=== PATIENT | male | born 1985 | race Caucasian/White ===

== ENCOUNTER 2021-03-23 10:03 | Emergency (ER) | payer OTHER, SELFPAY ==
[2021-03-23 10:17] VITALS: BP 115/66; PULSE 68; RESP 12; TEMP 36.8; O2SAT 100
--- NOTE | 2021-03-23 11:00 | ED.GENADULT ---
HPI - General Adult General Chief complaint: Neck Pain/Injury Stated complaint: Lt Shoulder Time Seen by Provider: 03/23/21 10:52 Source: patient and RN notes reviewed Mode of arrival: ambulatory Limitations: no limitations History of Present Illness HPI narrative: Patient presents today complaining of left pectoral, trapezius, and latissimus pain after [employer] practice 2 days ago. States he is having spasms in these muscles and pain is worse when he lets his arm hang to the side. Pain occasionally radiates to the upper arm. Currently rates pain 6/10. He is having difficulty getting into good sleeping position for him to rest. States pain is constant. He has tried ice and heat as well as stretching, all without relief. MD complaint: Left shoulder pain Related Data Allergies Allergy/AdvReac Type Severity Reaction Status Date / Time cefaclor [From [facility]] Allergy Rash Verified 03/23/21 10:24 Review of Systems Review of Systems: CONSTITUTIONAL: Denies body aches, fever, chills, or sweats. EYES: Denies visual changes, redness, or discharge. ENT: Denies rhinorrhea, congestion, sore throat, or otalgia. CARDIOVASCULAR: Denies chest pain, palpitations, or edema. RESPIRATORY: Denies cough or dyspnea. GASTROINTESTINAL: Denies abdominal pain, nausea, vomiting, or diarrhea. GENITOURINARY: Denies dysuria or hematuria. SKIN: Denies rash, itching, or wounds. MUSCULOSKELETAL: Denies back pain. + Left shoulder pain NEUROLOGIC: Denies headache, numbness, tingling, or weakness. PSYCH: Denies depression or anxiety. PMFSH Comments At time of signature, I have reviewed and agree with nursing past medical, surgical, social and family history unless otherwise noted. Please see nursing chart for further information. There is no relevant family history pertinent to the presenting complaint Exam Narrative: GENERAL: Well-appearing, well-nourished, and in no acute distress. HEAD: Normocephalic, atraumatic. EYES: EOMI. No redness or drainage. Conjunctivae normal. ENT: Mucous membranes pink and moist. NECK: Normal AROM. Supple. No lymphadenopathy. No tenderness to the neck. CHEST: No respiratory distress. MUSCULOSKELETAL: No bony tenderness to the spine. EXTREMITIES: Normal range of motion of the left shoulder. No edema. Tenderness to the left trapezius, left upper chest area, and the left lateral chest/axilla.. Patient has full range of motion of the shoulder. Distal sensation intact. Capillary refill normal. Radial pulse normal. SKIN: Warm, dry, no rash. Capillary refill normal. Normal skin turgor. NEURO: No focal deficits. Alert and oriented x3. Gait steady. PSYCH: Normal affect. No signs of depression or anxiety. Course Vital Signs Vital signs: Vital Signs Temperature 98.2 F 03/23/21 10:17 Pulse Rate 68 03/23/21 10:17 Respiratory Rate 12 03/23/21 10:17 Blood Pressure 115/66 03/23/21 10:17 Pulse Oximetry 100 03/23/21 10:17 Temperature 98.2 F 03/23/21 10:17 Pulse Rate 68 03/23/21 10:17 Respiratory Rate 12 03/23/21 10:17 Blood Pressure 115/66 03/23/21 10:17 Pulse Oximetry 100 03/23/21 10:17 Reviewed Medical Decision Making Differential Diagnosis Differential Diagnosis: Muscle strain, muscle spasm, shoulder strain, rotator cuff tendinitis Vital Signs Vital Signs: Vital Signs Temperature 98.2 F 03/23/21 10:17 Pulse Rate 68 03/23/21 10:17 Respiratory Rate 12 03/23/21 10:17 Blood Pressure 115/66 03/23/21 10:17 Pulse Oximetry 100 03/23/21 10:17 Temperature 98.2 F 03/23/21 10:17 Pulse Rate 68 03/23/21 10:17 Respiratory Rate 12 03/23/21 10:17 Blood Pressure 115/66 03/23/21 10:17 Pulse Oximetry 100 03/23/21 10:17 Critical Care Time Critical Care Time Critical Care Time: No Discharge Plan Discharge Clinical Impression: Muscle strain Patient Disposition: Home, Self-Care Condition: Stable Instructions: Muscle Strain (DC) Addition
--- NOTE | 2021-03-23 11:46 | PC.NURSE ---
Thea called into [facility] in [place] because [facility] is closed today.
== END 2021-03-23 11:25 | disposition home or self-care (01) ==
PROVIDERS: Emergency Provider Nurse Practitioner
DX: S16.1XXA Strain of muscle, fascia and tendon at neck level, initial encounter (principal); X58.XXXA Exposure to other specified factors, initial encounter; Y93.75 Activity, martial arts
CPT/HCPCS: 99203; G0463

== ENCOUNTER 2022-05-23 10:20 | Emergency (ER) | payer OTHER, SELFPAY ==
--- NOTE | ~2022-05-23 | XR_ITS ---
XR finger 3rd RT min 2V DATE: 05/23/2022 10:48 INDICATION: Injury to proximal phalanx 2 months ago, 3 injury 2 days ago TECHNIQUE: 4 views of third digit COMPARISON: None FINDINGS: No fracture or dislocation, periosteal reaction or bone destruction, joint space narrowing, erosive change, chondrocalcinosis, subcutaneous emphysema or radiopaque foreign body IMPRESSION: No significant abnormality Reviewed, dictated and finalized at location A. [facility] COORDINATOR IMPRESSION: No significant abnormality
[2022-05-23 10:37] VITALS: BP 112/64; PULSE 72; RESP 16; TEMP 36.5; O2SAT 100
[2022-05-23 10:38] VITALS: BP 112/64; PULSE 72; RESP 16; TEMP 36.5; O2SAT 100
--- NOTE | 2022-05-23 11:05 | ED.UPPEXIN ---
HPI - Extremity Injury (Upper) General Chief Complaint: Extremity Injury, Upper Stated Complaint: Finger Pain Rt Hand Time Seen by Provider: 05/23/22 10:47 Source: patient Mode of arrival: ambulatory Limitations: no limitations History of Present Illness HPI narrative: Patient presents today complaining of an injury to his right 3rd finger. He initially injured it 2 months ago doing jujitsu, but symptoms had improved combo for injuring and again a few days ago. States he has increased pain when making a fist. He is pain-free at rest. He is applying ice and heat and stretching the finger. He has tried no medication for symptoms prior to arrival. Denies any numbness or tingling. Related Data Home Medications Medication Instructions Recorded Confirmed No Home Medications 05/23/22 05/23/22 Allergies Allergy/AdvReac Type Severity Reaction Status Date / Time cefaclor [From [facility]] AdvReac Mild Rash Verified 05/23/22 11:06 Review of Systems Review of Systems: CONSTITUTIONAL: Denies body aches, fever, chills, or sweats. EYES: Denies visual changes, redness, or discharge. ENT: Denies rhinorrhea, congestion, sore throat, or otalgia. CARDIOVASCULAR: Denies chest pain, palpitations, or edema. RESPIRATORY: Denies cough or dyspnea. GASTROINTESTINAL: Denies abdominal pain, nausea, vomiting, or diarrhea. GENITOURINARY: Denies dysuria or hematuria. SKIN: Denies rash, itching, or wounds. MUSCULOSKELETAL: Denies back pain, or myalgia. + finger injury NEUROLOGIC: Denies headache, numbness, tingling, or weakness. PSYCH: Denies depression or anxiety. PMFSH Comments At time of signature, I have reviewed and agree with nursing past medical, surgical, social and family history unless otherwise noted. Please see nursing chart for further information. There is no relevant family history pertinent to the presenting complaint Exam Narrative: GENERAL: Well-appearing, well-nourished, and in no acute distress. HEAD: Normocephalic, atraumatic. EYES: EOMI. No redness or drainage. ENT: Mucous membranes pink and moist. NECK: Normal AROM. CHEST: No respiratory distress. EXTREMITIES: Right 3rd finger: Tenderness to the MCP and PIP. No edema, ecchymosis, or erythema noted. Pain with full flexion. Distal sensation intact. Capillary refill normal. SKIN: Warm, dry, no rash. Capillary refill normal. Normal skin turgor. NEURO: No focal deficits. Alert and oriented x3. Gait steady. PSYCH: Normal affect. No signs of depression or anxiety. Course Course Level of Care: Express Care Visit Vital Signs Vital signs: Vital Signs Temperature 97.7 F 05/23/22 10:37 Pulse Rate 72 05/23/22 10:37 Respiratory Rate 16 05/23/22 10:37 Blood Pressure 112/64 05/23/22 10:37 Pulse Oximetry 100 05/23/22 10:37 Oxygen Delivery Room Air 05/23/22 10:37 Temperature 97.7 F 05/23/22 11:07 Pulse Rate 72 05/23/22 11:07 Respiratory Rate 16 05/23/22 11:07 Blood Pressure 112/64 05/23/22 10:38 Pulse Oximetry 100 05/23/22 11:07 Oxygen Delivery Room Air 05/23/22 10:38 Reviewed MDM - Extremity Injury (Upper) Differential Diagnosis Differential diagnosis: Likely finger sprain and other (Finger fracture) Imaging Data Radiologist's impression: ITS Impressions Finger X-Ray 05/23/22 11:08 IMPRESSION: No significant abnormality Critical Care Time Critical Care Time Critical Care Time: No Discharge Plan Discharge Clinical Impression: Finger sprain Qualifiers: Encounter type: initial encounter Finger: middle finger Sprain of finger site: unspecified site Laterality: right Qualified Code(s): S63.612A - Unspecified sprain of right middle finger, initial encounter Patient Disposition: Home, Self-Care Condition: Stable Instructions: Finger Sprain (ED) Additional Instructions: Your x-rays negative for fracture today. Ice your finger. Taking anti-inflammatories such as Aleve or ibupr
[2022-05-23 11:07] VITALS: PULSE 72; RESP 16; TEMP 36.5; O2SAT 100
== END 2022-05-23 11:20 | disposition home or self-care (01) ==
PROVIDERS: Emergency Provider Nurse Practitioner
DX: S63.612A Unspecified sprain of right middle finger, initial encounter (principal); X58.XXXA Exposure to other specified factors, initial encounter
CPT/HCPCS: 73140; 99213; G0463

== ENCOUNTER 2022-05-27 09:54 | Emergency (ER) | payer OTHER, SELFPAY ==
[2022-05-27 09:58] VITALS: BP 113/75; PULSE 68; RESP 16; TEMP 36.5; O2SAT 98
--- NOTE | 2022-05-27 10:05 | ED.WOUNDLAC ---
HPI - Wound/Laceration General Chief Complaint: Wound/Laceration Stated Complaint: Cut on right thumb Time Seen by Provider: 05/27/22 10:05 Source: patient Mode of arrival: ambulatory Limitations: no limitations History of Present Illness HPI narrative: has a superficial laceration of the palm surface of his distal thumb that occurred about 20minutes a couple minutes ago while at work has good range of motion with no numbness or tingling, is not up-to-date with his tetanus and will update patient with his tetanus vaccine. Onset (ago): minute(s) Location: other Extremity Location: Right: hand ( Palmar surface of his right thumb) Place: work Patient tetanus UTD: No Context: accidental Related Data Home Medications Medication Instructions Recorded Confirmed No Home Medications 05/23/22 05/27/22 Allergies Allergy/AdvReac Type Severity Reaction Status Date / Time cefaclor [From Ceclor] AdvReac Mild Rash Verified 05/23/22 11:06 Review of Systems Review of Systems: All systems reviewed & are unremarkable except as noted in HPI and below PMFSH Past Medical History Medical History Patient denies medical problems Exam Const: General: healthy appearing Nutritional Appearance: well nourished Orientation/consciousness: patient oriented x3 Limitations: no limitations HENMT: Head: normal to inspection Face and sinus: normal facial exam Mouth: Yes Normal oral and palatal mucosa present Eyes: Pupils: Equal, round and reactive pupils present EOM: EOMs intact bilaterally Neck: Neck: normal visual inspection Chest: Chest palpation & inspection: normal inspection of the chest Resp: Effort & Inspection: normal respiratory effort Auscultation: clear to auscultation bilaterally Cardio: Rate: regular rate GI: GI Palp: Yes Soft to palpation Auscultation: normal bowel sounds Skin: Other: superficial laceration palmar surface of his dimmed distal right thumb non gaping approximately 2cm Neuro: General: patient oriented x3 Cranial nerves: Yes Nystagmus not present Extrem: General: normal to inspection Psych: Mental Status: mental status grossly normal Affect: normal affect Course Course Emergency Course: patient tolerated procedure well had Dermabond applied to his laceration of his right thumb and updated patient with his tetanus vaccine Procedures Laceration Laceration 1: Date: 05/27/22 Time: 10:09 Site: hand ( right thumb) Side (If applicable): right Size (cm): 2 Description: linear Depth: simple, single layer Pre-repair: irrigated extensively ====== Skin Level ====== Skin layer closed with: dermabond ====== Subcutaneous Layer ====== ====== Muscle Layer ====== ====== Tendon Layer ====== Critical Care Time Critical Care Time Critical Care Time: No Discharge Plan Discharge Clinical Impression: Laceration Patient Disposition: Home, Self-Care Condition: Stable Instructions: Antibiotic Form, Laceration (ED), Skin Adhesive Care (ED) Additional Instructions: advised follow-up with primary care physician if symptoms persist or worsen. Prescriptions: No Action No Home Medications Follow-up/Referrals: UNKNOWN,DOCTOR [Primary Care Provider] - Time of Disposition: 10:10
[2022-05-27] MEDS: TETANUS,DIPHTHERIA,AC PERTUSSIS ADULT 0.5 ML (ADACEL) IM (10:10)
[2022-05-27 10:22] VITALS: BP 133/77; PULSE 104; RESP 20; TEMP 37.6; O2SAT 95
== END 2022-05-27 10:23 | disposition home or self-care (01) ==
LOC: CHSED 10:18
PROVIDERS: Emergency Provider Emergency Medicine
DX: S61.011A Laceration without foreign body of right thumb without damage to nail, initial encounter (principal); W45.8XXA Other foreign body or object entering through skin, initial encounter
CPT/HCPCS: 12001; 90471; 90715; 99282

== ENCOUNTER 2023-02-08 16:39 | Emergency (ER) | payer OTHER, SELFPAY ==
[2023-02-08 16:46] VITALS: BP 118/62; PULSE 88; RESP 14; TEMP 36.9; O2SAT 99
--- NOTE | 2023-02-08 16:52 | ED.SKABFB ---
HPI - Skin/Abscess/Foreign Bdy General Chief complaint: Skin/Abscess/Foreign Body Stated complaint: skin irritation Time Seen by Provider: 02/08/23 16:50 Source: patient and RN notes reviewed Mode of arrival: ambulatory Limitations: dementia History of Present Illness HPI narrative: 37-year-old male presents with concern for redness, swelling, tenderness to his right anterior ankle. He reports he had some itchiness to that area from either a bug bite or ring warm and he has been scratching it. He reports it has since become painful, red, swollen. He felt poorly yesterday had body aches with a fever. complaint: other (Redness) Related Data Allergies Allergy/AdvReac Type Severity Reaction Status Date / Time cefaclor [From Ceclor] AdvReac Mild Rash Verified 02/08/23 16:45 Review of Systems Review of Systems: CONSTITUTIONAL: Reports malaise, fever. EYES: Denies redness, or discharge. CARDIOVASCULAR: Denies chest pain, palpitations, or edema. RESPIRATORY: Denies cough or dyspnea. GASTROINTESTINAL: Denies abdominal pain, nausea, vomiting SKIN: Reports redness, swelling tenderness to the anterior right ankle. Denies purulent drainage, vesicles, bullae, numbness, pain beyond proportion MUSCULOSKELETAL: Denies joint pain. Reports myalgia. NEUROLOGIC: Denies headache. All systems reviewed & are unremarkable except as noted in HPI and below PMFSH Past Medical History Medical History Patient denies medical problems Comments At time of signature, agree with nursing past medical, surgical, social and family history. There is no relevant family history pertinent to the presenting complaint Exam Narrative: GENERAL: Well-appearing, well-nourished, and in no acute distress. HEAD: Normocephalic, atraumatic. EYES: PERRLA, conjunctivae clear ENT: Mucous membranes moist. NECK: Supple. No lymphadenopathy CHEST: Clear to auscultation. No respiratory distress. HEART: Regular rate and rhythm. SKIN: Warm, dry. Erythema, induration, tenderness, warmth with sharp margins noted right anterior ankle. No vesicles, bullae, necrosis, ecchymosis, crepitus noted. NEURO: Alert and oriented x3. PSYCH: Normal mood and affect Course Course Emergency Course: Patient is aware of diagnosis, understands and agrees to treatment plan. Anticipatory guidance given. Patient agrees to follow-up as directed and is aware of reasons to seek care at the emergency department. Portions of this record may have been created with voice recognition software Level of Care: Express Care Visit Vital Signs Vital signs: Vital Signs Temperature 98.4 F 02/08/23 16:46 Pulse Rate 88 02/08/23 16:46 Respiratory Rate 14 02/08/23 16:46 Blood Pressure 118/62 02/08/23 16:46 Pulse Oximetry 99 02/08/23 16:46 Oxygen Delivery Room Air 02/08/23 16:46 Temperature 98.4 F 02/08/23 16:46 Pulse Rate 88 02/08/23 16:46 Respiratory Rate 14 02/08/23 16:46 Blood Pressure 118/62 02/08/23 16:46 Pulse Oximetry 99 02/08/23 16:46 Oxygen Delivery Room Air 02/08/23 16:46 Reviewed. MDM - Skin/Abscess/Foreign Bdy MDM Narrative Medical decision making narrative: Does not appear at this time to be erythema multiforme, bullous, SJS, TEN; no evidence at this time to suggest RMSF, NSTI, endocarditis or Lyme disease; patient looks well, nontoxic and is tolerating oral intake; no neurologic signs or symptoms; no headache, photophobia or neck pain; afebrile. Patient does not have history of of penetrating trauma, laceration, blunt trauma, recent surgery, immunosuppression, malignancy, obesity, alcoholism, corticosteroid use. Discussed the importance of follow-up, patient agrees; question, cellulitis versus necrotizing soft tissue infection versus abscess. Critical Care Time Critical Care Time Critical Care Time: No Discharge Plan Discharge Clinical Impression: Cellulitis P
== END 2023-02-08 17:00 | disposition home or self-care (01) ==
PROVIDERS: Emergency Provider Nurse Practitioner; PCP Family Medicine
DX: L03.115 Cellulitis of right lower limb (principal)
CPT/HCPCS: 99213; G0463